=== PATIENT | female | born 1990 | race Caucasian/White ===

== ENCOUNTER 2016-09-10 18:38 | Emergency (ER) | payer MEDICAID ==
[~2016-09-10] VITALS: Ht 182.9 cm; Wt 113.6 kg
[~2016-09-10 18:38] MED LIST: BCP TD; BIRTH CONTROL PILL; LEXAPRO20 MG PO; MIRENA52 MG IY; MOTRIN 600600 MG/TAB PO; MOTRIN 800800 MG/TAB PO; PERCOCET 325 MG1 TA2 PO; PHENERGAN 25 TA25 MG PO; PRENATAL1 TA7 PO
[2016-09-10 18:47] VITALS: TEMP 97.7
[2016-09-10] MEDS ORDERED: LEXAPRO20 MG PO (18:51)
[2016-09-10 19:35] LABS: BASO % 0.4 % (0.0-2.0); EOS # 0.3 (0.0-0.7); EOS % 2.9 % (0-4.0); GRAN # 6.8 (1.4-6.5); HEMATOCRIT 37.5 % (37.0-47.0); HEMOGLOBIN 13.1 g/dl (12.5-16.0); LYMPH # 2.8 (1.2-3.4); LYMPH % 26.9 % (20.0-51.0); MEAN CELL VOLUME 85 fl (80.0-100.0); MEAN CORPUSCULAR HEMOGLOBIN 30 pg (27.0-31.0); MEAN CORPUSCULAR HGB CONC 35 g/dl (33.0-37.0); MEAN PLATELET VOLUME 10.1 fl (7.4-10.4); MONO # 0.5 (0.1-0.6); MONO % 4.6 % (1.7-9.3); PLATELET COUNT 269 K/mm3 (130-400); REDCELL DISTRIBUTION WIDTH-CV 13.8 % (11.5-14.5); WHITE BLOOD COUNT 10.5 K/mm3 (4.8-10.8)
[2016-09-10 19:49] LABS: ADJUSTED CALCIUM 9.6 mg/dL (8.4-10.2); ALBUMIN 4.2 gm/dL (3.5-5.0); BILIRUBIN,TOTAL 0.6 mg/dL (0.0-1.0); C-REACTIVE PROTEIN 2.3 mg/dL (0.0-0.9); CALCIUM 9.8 mg/dL (8.4-10.2); CREATININE, serum 0.79 mg/dL (0.52-1.25); POTASSIUM 3.8 mmol/L (3.4-5.0); TOTAL PROTEIN 7.3 gm/dL (6.4-8.2)
[2016-09-10 21:17] LABS: PH 5 (5-8); URINE APPEARANCE Turbid; URINE BACTERIA None Seen /hpf; URINE BILIRUBIN Negative (NEGATIVE); URINE BLOOD Negative (NEGATIVE); URINE COLOR Amber; URINE GLUCOSE Negative (NEGATIVE); URINE KETONE Trace (NEGATIVE); URINE RBC 0-2 /hpf
[2016-09-10] MEDS ORDERED: FLAGYL500 MG PO (22:10)
[2016-09-10] MEDS ORDERED: CIPRO 500MG TA500 MG PO (22:10)
[2016-09-10] MEDS ORDERED: ZOFRAN 4MG T4 MG/TAB PO (22:10)
[2016-09-10] MEDS ORDERED: NORCO 325 MG-51 TAB PO (22:10)
[2016-09-10 22:31] VITALS: BP 132/84; PULSE 74
== END 2016-09-10 22:32 | disposition home or self-care (01) ==
LOC: COL.ER 18:38
PROVIDERS: Emergency Medicine
DX: K52.9 Noninfective gastroenteritis and colitis, unspecified (principal)
CPT/HCPCS: J1170; J1885; J2550; J7030; Q9967

== ENCOUNTER 2017-04-12 10:09 | Emergency (ER) | payer BC ==
[~2017-04-12] VITALS: Ht 182.9 cm; Wt 131.8 kg
[~2017-04-12 10:09] MED LIST changes: +CIPRO 500MG TA500 MG PO; +FLAGYL500 MG PO; +NORCO 325 MG-51 TAB PO; +ZOFRAN 4MG T4 MG/TAB PO
[2017-04-12 10:13] VITALS: TEMP 98.4
[2017-04-12] MEDS ORDERED: ZOLOFT 100MG100 MG PO (10:41)
[2017-04-12] MEDS ORDERED: ATARAX 10MG10 MG/TAB PO (10:41)
[2017-04-12 10:49] LABS: BASO # 0.1 (0.0-0.2); BASO % 0.7 % (0.0-2.0); EOS # 0.2 (0.0-0.7); EOS % 2.8 % (0-4.0); GRAN # 5.9 (1.4-6.5); GRAN % 69.3 % (42.2-75.2); HEMATOCRIT 38.2 % (37.0-47.0); HEMOGLOBIN 13.7 g/dl (12.5-16.0); LYMPH # 1.9 (1.2-3.4); MEAN CELL VOLUME 86 fl (80.0-100.0); MEAN CORPUSCULAR HEMOGLOBIN 31 pg (27.0-31.0); MEAN CORPUSCULAR HGB CONC 36 g/dl (33.0-37.0); MEAN PLATELET VOLUME 9.7 fl (7.4-10.4); MONO # 0.4 (0.1-0.6); MONO % 4.8 % (1.7-9.3); PLATELET COUNT 272 K/mm3 (130-400); RED BLOOD COUNT 4.45 M/mm3 (4.10-5.30); REDCELL DISTRIBUTION WIDTH-CV 12.7 % (11.5-14.5); WHITE BLOOD COUNT 8.6 K/mm3 (4.8-10.8)
[2017-04-12 11:01] LABS: ADJUSTED CALCIUM 9.3 mg/dL (8.4-10.2); ALBUMIN 4.3 gm/dL (3.5-5.0); BILIRUBIN,TOTAL 0.5 mg/dL (0.0-1.0); CALCIUM 9.5 mg/dL (8.4-10.2); CREATININE, serum 0.63 mg/dL (0.52-1.25); TOTAL PROTEIN 7.2 gm/dL (6.4-8.2)
[2017-04-12 11:03] LABS: PH 7 (5-8); URINE APPEARANCE Hazy; URINE BACTERIA Rare /hpf; URINE BILIRUBIN Negative (NEGATIVE); URINE BLOOD Negative (NEGATIVE); URINE COLOR Straw; URINE GLUCOSE Negative (NEGATIVE); URINE KETONE Negative (NEGATIVE); URINE RBC 0-2 /hpf; URINE UROBILINOGEN Negative (NEGATIVE); URINE WBC 0-2 /hpf
[2017-04-12] MEDS ORDERED: NORCO 325 MG-51 TAB PO (12:00)
[2017-04-12 12:06] VITALS: BP 136/88; PULSE 92
== END 2017-04-12 12:08 | disposition home or self-care (01) ==
LOC: COL.ER 10:09
PROVIDERS: Family Medicine
DX: R10.11 Right upper quadrant pain (principal); F17.210 Nicotine dependence, cigarettes, uncomplicated
CPT/HCPCS: J1170; J2405; J7030

== ENCOUNTER → 2017-04-13 | Outpatient (CLI) | payer BC ==
[~2017-04-13] MED LIST changes: +ADVIL200 MG PO; +ATARAX 10MG10 MG/TAB PO; +LEVSIN0.125 M1 PO; +NUVARING VAG RING VG; +PRILOSEC 20MG20 MG PO; +TYLENOL 325MG325 MG PO; +ZOLOFT 100MG100 MG PO
== END ==
LOC: COL.RAD 14:17
DX: R10.11 Right upper quadrant pain (principal); R10.2 Pelvic and perineal pain
CPT/HCPCS: Q9967

== ENCOUNTER → 2017-04-19 | Outpatient (CLI) | payer BC | LOC: COL.RAD 11:58 | DX: R10.11 Right upper quadrant pain (principal) | CPT/HCPCS: A9537; J2270 ==

== ENCOUNTER 2017-05-11 11:55 | Day surgery (SDC) | payer BC ==
[~2017-05-11] VITALS: Ht 182.9 cm; Wt 135.1 kg
[~2017-05-11 11:55] MED LIST changes: -ADVIL200 MG PO; -LEVSIN0.125 M1 PO; -NUVARING VAG RING VG; -PRILOSEC 20MG20 MG PO; -TYLENOL 325MG325 MG PO
[2017-05-11] MEDS ORDERED: TYLENOL 325MG325 MG PO (12:21)
[2017-05-11] MEDS ORDERED: NUVARING VAG RING VG (12:21)
[2017-05-11] MEDS ORDERED: ADVIL200 MG PO (12:22)
[2017-05-11 12:46] VITALS: BP 131/82; PULSE 93; TEMP 97.2
[2017-05-11 14:40] VITALS: BP 118/78; PULSE 67; TEMP 97.7
--- NOTE | 2017-05-11 14:40 | NUR ---
Pt. returned to [facility] via cart accompanied by martinez RN. Pt. ambulated with assist to chair, gait steady. Boyfriend is in room. VS stable. Pt. reports pain level of 9/10 but states this is tolerable. Pt. states pain is normally a 7/10, and she feels slightly more discomfort after procedure. States she does not need a warm compress or pain medication at this time. Pt. is talking without difficulty, smiling, and tolerating PO fluids and muffins without difficulty. Pt. is alert/oriented/answering questions appropriately. Call arguelles within reach.
[2017-05-11 14:45] VITALS: BP 105/65; PULSE 84
--- NOTE | 2017-05-11 14:45 | NUR ---
Pt. continues to sit up in chair with boyfriend in room. Tolerating PO intake well. Denies nausea/needs, states abdominal pain is tolerable. Call arguelles within reach.
[2017-05-11 15:00] VITALS: BP 120/74; PULSE 74
--- NOTE | 2017-05-11 15:00 | NUR ---
Pt. continues to sit up in bed with boyfriend in room. Denies needs. Dr. Martinez in to see patient and discuss procedure. Call arguelles within reach.
[2017-05-11 15:15] VITALS: BP 133/72; PULSE 62
--- NOTE | 2017-05-11 15:15 | NUR ---
Pt. continues to tolerate PO intake well. IV discontinued at this time with tip intact. Dressing applied, pt. tolerated procedure well. Pt. dressed and ambulated to restroom at this time independently and without difficulty. Call arguelles within reach.
[2017-05-11] MEDS ORDERED: PRILOSEC 20MG20 MG PO (15:31)
[2017-05-11] MEDS ORDERED: LEVSIN0.125 M1 PO (15:32)
--- NOTE | 2017-05-11 15:40 | NUR ---
Pt. states she is ready to go home. Discharge instructions provided at this time, pt. and boyfriend voice understanding. Pt. discharged via wheelchair, accompanied by this RN. Pt. assisted into private vehicle, driven home by boyfriend.
[2017-07-11] MEDS ORDERED: BACTRIM DS 8001 TAB PO (00:11)
[2018-07-12] MEDS ORDERED: OMNICEF 300MG300 MG PO (10:59)
[2018-12-20] MEDS ORDERED: PROAIR HFA0.09 MG/AC IH (03:23)
[2018-12-20] MEDS ORDERED: ZITHROMAX 250M250 MG PO (03:23)
== END 2017-05-11 15:45 | disposition home or self-care (01) ==
LOC: SDCO 11:55
DX: K29.30 Chronic superficial gastritis without bleeding (principal); K64.0 First degree hemorrhoids; F17.210 Nicotine dependence, cigarettes, uncomplicated; F41.9 Anxiety disorder, unspecified; Z80.51 Family history of malignant neoplasm of kidney; Z80.1 Family history of malignant neoplasm of trachea, bronchus and lung; Z80.0 Family history of malignant neoplasm of digestive organs
CPT/HCPCS: OP; J2250; J2405; J3010; J7030

== ENCOUNTER 2017-05-17 01:31 | Emergency (ER) | payer BC ==
[~2017-05-17] VITALS: Wt 131.8 kg
[~2017-05-17 01:31] MED LIST changes: +ADVIL200 MG PO; +LEVSIN0.125 M1 PO; +NUVARING VAG RING VG; +PRILOSEC 20MG20 MG PO; +TYLENOL 325MG325 MG PO
[2017-05-17 01:35] VITALS: BP 163/83; PULSE 89; TEMP 97
[2017-05-17] MEDS ORDERED: NORCO 325 MG-51 TAB PO (02:22)
== END 2017-05-17 02:21 | disposition home or self-care (01) ==
LOC: COL.ER 01:31
DX: R07.0 Pain in throat (principal); R07.1 Chest pain on breathing; Z98.890 Other specified postprocedural states; F99 Mental disorder, not otherwise specified

== ENCOUNTER 2018-01-17 12:24 | Emergency (ER) | payer BC ==
[~2018-01-17] VITALS: Ht 182.9 cm; Wt 144.6 kg
[~2018-01-17 12:24] MED LIST changes: +BACTRIM DS 8001 TAB PO
[2018-01-17 12:27] VITALS: BP 139/94; TEMP 97.3
[2018-01-17 12:59] LABS: COLLECTION METHOD CLEAN CATCH
[2018-01-17 13:09] LABS: BASO # 0.1 (0.0-0.2); BASO % 0.5 % (0.0-2.0); EOS # 0.2 (0.0-0.7); EOS % 2.4 % (0-4.0); GRAN # 6.8 (1.4-6.5); GRAN % 67.5 % (42.2-75.2); HEMATOCRIT 37.9 % (37.0-47.0); HEMOGLOBIN 13.2 g/dl (12.5-16.0); LYMPH # 2.5 (1.2-3.4); LYMPH % 24.7 % (20.0-51.0); MEAN CELL VOLUME 85 fl (80.0-100.0); MEAN CORPUSCULAR HEMOGLOBIN 30 pg (27.0-31.0); MEAN CORPUSCULAR HGB CONC 35 g/dl (33.0-37.0); MEAN PLATELET VOLUME 9.5 fl (7.4-10.4); MONO # 0.5 (0.1-0.6); MONO % 4.6 % (1.7-9.3); PLATELET COUNT 310 K/mm3 (130-400); RED BLOOD COUNT 4.47 M/mm3 (4.10-5.30); REDCELL DISTRIBUTION WIDTH-CV 14.2 % (11.5-14.5)
[2018-01-17 13:12] LABS: MUCOUS Present /lpf; PH 5 (5-8); URINE APPEARANCE Cloudy; URINE BACTERIA Rare /hpf; URINE BILIRUBIN Negative (NEGATIVE); URINE BLOOD 1+ (NEGATIVE); URINE COLOR Yellow; URINE GLUCOSE Negative (NEGATIVE); URINE KETONE Negative (NEGATIVE); URINE LEUKOCYTE ESTERASE 2+ (NEGATIVE); URINE NITRATE Negative (NEGATIVE); URINE PROTEIN(semi-quant) 1+ (NEGATIVE); URINE RBC 0-2 /hpf
[2018-01-17 13:24] LABS: ALBUMIN 3.7 gm/dL (3.5-5.0); BILIRUBIN,TOTAL 0.2 mg/dL (0.0-1.0); C-REACTIVE PROTEIN 2.4 mg/dL (0.0-0.9); CALCIUM 9.3 mg/dL (8.4-10.2); CREATININE, serum 0.63 mg/dL (0.52-1.25); POTASSIUM 4.2 mmol/L (3.4-5.0); TOTAL PROTEIN 6.9 gm/dL (6.4-8.2)
[2018-01-17] MEDS ORDERED: NORCO 325 MG-51 TAB PO (14:33)
[2018-01-17 14:39] VITALS: PULSE 77
== END 2018-01-17 14:40 | disposition home or self-care (01) ==
LOC: COL.ER 12:24
PROVIDERS: Nurse Practitioner
DX: G89.29 Other chronic pain (principal); R10.11 Right upper quadrant pain; Z98.890 Other specified postprocedural states

== ENCOUNTER 2018-07-10 20:04 | Emergency (ER) | payer BC ==
[~2018-07-10] VITALS: Ht 182.9 cm; Wt 124.1 kg
[2018-07-10 20:12] VITALS: TEMP 97.3
[2018-07-10 20:25] LABS: COLLECTION METHOD CLEAN CATCH
[2018-07-10 20:36] LABS: BUDDING YEAST Present /hpf; MUCOUS Present /lpf; PH 6 (5-8); SQUAMOUS EPITHELIAL 0-2 /hpf; URINE APPEARANCE Hazy; URINE BACTERIA Rare /hpf; URINE BILIRUBIN Negative (NEGATIVE); URINE BLOOD 2+ (NEGATIVE); URINE COLOR Yellow; URINE GLUCOSE Negative (NEGATIVE); URINE KETONE Negative (NEGATIVE); URINE LEUKOCYTE ESTERASE 3+ (NEGATIVE); URINE NITRATE Negative (NEGATIVE); URINE PROTEIN(semi-quant) Negative (NEGATIVE); URINE RBC >50 /hpf; URINE UROBILINOGEN Negative (NEGATIVE)
[2018-07-10 20:46] LABS: BASO % 0.4 % (0.0-2.0); EOS # 0.2 (0.0-0.7); EOS % 1.5 % (0-4.0); GRAN # 7.9 (1.4-6.5); GRAN % 70.9 % (42.2-75.2); HEMOGLOBIN 13.4 g/dl (12.5-16.0); LYMPH # 2.6 (1.2-3.4); LYMPH % 23.1 % (20.0-51.0); MEAN CELL VOLUME 87 fl (80.0-100.0); MEAN CORPUSCULAR HEMOGLOBIN 30 pg (27.0-31.0); MEAN CORPUSCULAR HGB CONC 34 g/dl (33.0-37.0); MEAN PLATELET VOLUME 9.7 fl (7.4-10.4); MONO # 0.4 (0.1-0.6); MONO % 3.8 % (1.7-9.3); PLATELET COUNT 278 K/mm3 (130-400); REDCELL DISTRIBUTION WIDTH-CV 14.7 % (11.5-14.5)
[2018-07-10] MEDS ORDERED: BACTRIM DS 8001 TAB PO (20:56)
[2018-07-10 21:33] VITALS: BP 120/76; PULSE 75
[2018-07-12] MEDS ORDERED: OMNICEF 300MG300 MG PO (10:59)
== END 2018-07-10 21:35 | disposition home or self-care (01) ==
LOC: COL.ER 20:04
PROVIDERS: Emergency Medicine; Family Medicine
DX: N30.00 Acute cystitis without hematuria (principal)
CPT/HCPCS: A4216; J0696; J2405; J7030

== ENCOUNTER 2019-01-23 19:59 | Emergency (ER) | payer BC ==
[~2019-01-23] VITALS: Ht 182.9 cm; Wt 118.2 kg
[~2019-01-23 19:59] MED LIST changes: +OMNICEF 300MG300 MG PO; +PROAIR HFA0.09 MG/AC IH; +ZITHROMAX 250M250 MG PO
[2019-01-23 20:02] VITALS: BP 121/68; TEMP 99.2
[2019-01-23 20:21] LABS: COLLECTION METHOD CLEAN CATCH
[2019-01-23 20:35] LABS: MUCOUS Present /lpf; PH 6 (5-8); SQUAMOUS EPITHELIAL None Seen /hpf; URINE APPEARANCE Cloudy; URINE BACTERIA None Seen /hpf; URINE BILIRUBIN Negative (NEGATIVE); URINE BLOOD 3+ (NEGATIVE); URINE COLOR Amber; URINE GLUCOSE Negative (NEGATIVE); URINE KETONE Negative (NEGATIVE); URINE LEUKOCYTE ESTERASE 2+ (NEGATIVE); URINE NITRATE Negative (NEGATIVE); URINE PROTEIN(semi-quant) 2+ (NEGATIVE); URINE RBC >50 /hpf; URINE UROBILINOGEN Negative (NEGATIVE)
[2019-01-23] MEDS ORDERED: MACROBID 1100 MG/CAP PO (21:05)
[2019-01-23 21:31] VITALS: PULSE 81
== END 2019-01-23 21:31 | disposition home or self-care (01) ==
LOC: COL.ER 19:59
PROVIDERS: Nurse Practitioner
DX: N39.0 Urinary tract infection, site not specified (principal); F17.210 Nicotine dependence, cigarettes, uncomplicated; Z98.890 Other specified postprocedural states
CPT/HCPCS: J1885

== ENCOUNTER 2019-02-04 08:06 | Emergency (ER) | payer BC ==
[~2019-02-04] VITALS: Ht 180.3 cm; Wt 124.0 kg
[~2019-02-04 08:06] MED LIST changes: +MACROBID 1100 MG/CAP PO
[2019-02-04 08:10] VITALS: BP 127/71; TEMP 97.6
[2019-02-04 08:26] LABS: COLLECTION METHOD CLEAN CATCH
[2019-02-04 08:37] LABS: BUDDING YEAST Present /hpf; PH 6 (5-8); SQUAMOUS EPITHELIAL 0-2 /hpf; URINE APPEARANCE Cloudy; URINE BACTERIA Occasional /hpf; URINE BILIRUBIN Negative (NEGATIVE); URINE BLOOD 3+ (NEGATIVE); URINE COLOR Yellow; URINE GLUCOSE Negative (NEGATIVE); URINE KETONE Negative (NEGATIVE); URINE LEUKOCYTE ESTERASE 3+ (NEGATIVE); URINE NITRATE Negative (NEGATIVE); URINE PROTEIN(semi-quant) Negative (NEGATIVE); URINE RBC >50 /hpf; URINE UROBILINOGEN Negative (NEGATIVE)
[2019-02-04] MEDS ORDERED: CIPRO 500MG TA500 MG PO (08:56)
[2019-02-04] MEDS ORDERED: DIFLUCAN150 MG PO (08:58)
[2019-02-04 09:08] VITALS: PULSE 73
== END 2019-02-04 09:09 | disposition home or self-care (01) ==
LOC: COL.ER 08:06
PROVIDERS: Physician Assistant
DX: N76.0 Acute vaginitis (principal); N39.0 Urinary tract infection, site not specified; F17.210 Nicotine dependence, cigarettes, uncomplicated; B96.89 Other specified bacterial agents as the cause of diseases classified elsewhere; B37.9 Candidiasis, unspecified

== ENCOUNTER 2019-05-04 17:21 | Emergency (ER) | payer BC ==
[~2019-05-04] VITALS: Ht 180.3 cm; Wt 127.3 kg
[~2019-05-04 17:21] MED LIST changes: +DIFLUCAN150 MG PO
[2019-05-04 17:29] VITALS: TEMP 98.5
[2019-05-04 17:54] LABS: COLLECTION METHOD CLEAN CATCH
[2019-05-04 18:17] LABS: PH 6 (5-8); SQUAMOUS EPITHELIAL 0-2 /hpf; URINE APPEARANCE Hazy; URINE BACTERIA None Seen /hpf; URINE BILIRUBIN Negative (NEGATIVE); URINE BLOOD 3+ (NEGATIVE); URINE COLOR Amber; URINE GLUCOSE Negative (NEGATIVE); URINE KETONE Negative (NEGATIVE); URINE LEUKOCYTE ESTERASE 3+ (NEGATIVE); URINE NITRATE Positive (NEGATIVE); URINE PROTEIN(semi-quant) 2+ (NEGATIVE); URINE RBC >50 /hpf; URINE UROBILINOGEN Negative (NEGATIVE)
[2019-05-04 18:51] LABS: BASO # 0.1 (0.0-0.2); BASO % 0.4 % (0.0-2.0); EOS # 0.2 (0.0-0.7); EOS % 1.3 % (0-4.0); GRAN # 8.3 (1.4-6.5); GRAN % 68.4 % (42.2-75.2); HEMATOCRIT 38.4 % (37.0-47.0); LYMPH % 24.8 % (20.0-51.0); MEAN CELL VOLUME 92 fl (80.0-100.0); MEAN CORPUSCULAR HEMOGLOBIN 31 pg (27.0-31.0); MEAN CORPUSCULAR HGB CONC 34 g/dl (33.0-37.0); MEAN PLATELET VOLUME 9.4 fl (7.4-10.4); MONO # 0.6 (0.1-0.6); MONO % 4.8 % (1.7-9.3); PLATELET COUNT 241 K/mm3 (130-400); RED BLOOD COUNT 4.18 M/mm3 (4.10-5.30); REDCELL DISTRIBUTION WIDTH-CV 13.5 % (11.5-14.5)
[2019-05-04 19:07] LABS: ALBUMIN 3.9 gm/dL (3.5-5.0); BILIRUBIN,TOTAL 0.3 mg/dL (0.0-1.0); C-REACTIVE PROTEIN 3.2 mg/dL (0.0-0.9); CALCIUM 9.1 mg/dL (8.4-10.2); CREATININE, serum 0.74 (0.52-1.25); POTASSIUM 3.6 mmol/L (3.4-5.0); TOTAL PROTEIN 6.5 gm/dL (6.4-8.2)
[2019-05-04] MEDS ORDERED: OMNICEF 300MG300 MG PO (21:09)
[2019-05-04 21:46] VITALS: BP 136/75; PULSE 68
== END 2019-05-04 21:20 | disposition home or self-care (01) ==
LOC: COL.ER 17:21
PROVIDERS: Emergency Medicine; Physician Assistant
DX: N39.0 Urinary tract infection, site not specified (principal)
CPT/HCPCS: A4216; J0696; J1885; J2405; J7030; Q9967

== ENCOUNTER 2021-12-02 07:56 | Inpatient (IN) | payer MEDICAID ==
[~2021-12-02] VITALS: Ht 180.3 cm; Wt 152.3 kg
[2021-12-03] VITALS (52 sets, daily range): BP systolic 98–162; BP diastolic 51–100; PULSE 56–89; TEMP 97.7
[2021-12-03] MEDS ORDERED: EFFEXOR-XR150 MG PO (06:32)
[2021-12-03] MEDS ORDERED: PRENATAL TABLET PO (06:32)
--- NOTE | 2021-12-03 07:00 | NUR ---
0615 Pt ambulatory onto unit. FHR monitor/TOCO applied. Vital signs WNL. Pt denies any vaginal bleeding, regular contractions, decreased movement, or leaking of fluid. Assessments done. Consents signed. Oriented to room. Plan of care discussed. Call light within reach. Pt verbalizes understanding. 0645 IV started in right hand. Flushes easily. No redness/drainage/edema at site. 0700 LR and pitocin started per protocol.
[2021-12-03 07:18] LABS: BASO % 0.4 % (0.0-2.0); EOS # 0.2 K/mm3 (0.0-0.7); GRAN % 70.7 % (42.2-75.2); LYMPH # 1.9 K/mm3 (1.2-3.4); LYMPH % 22.8 % (20.0-51.0); MEAN CELL VOLUME 85 fl (80.0-100.0); MEAN CORPUSCULAR HEMOGLOBIN 30 pg (27-31); MEAN CORPUSCULAR HGB CONC 35 g/dl (33.0-37.0); MEAN PLATELET VOLUME 10.9 fl (7.4-10.4); MONO # 0.3 K/mm3 (0.1-0.6); MONO % 3.6 % (1.7-9.3); PLATELET COUNT 209 K/mm3 (130-400); RED BLOOD COUNT 4.05 M/mm3 (4.10-5.30); REDCELL DISTRIBUTION WIDTH-CV 15.9 % (11.5-14.5)
[2021-12-03 07:19] LABS: HEMATOCRIT 34.6 % (37.0-47.0)
--- NOTE | 2021-12-03 13:30 | NUR ---
[id number] This RN at bedside. FHR intermittently audible. [address] to [address] FSE 1315 A MARINA RN attempting to place FSE 1330 Dr. Hobbs in patient room. SVE /2. FSE PLACED.
--- NOTE | 2021-12-03 16:00 | NUR ---
[id number] this rn at bedside repositionning patient, increasing LR, pitocin shut off. Dr Hobbs notified about FHR.
[2021-12-04 01:15] VITALS: BP 130/69; PULSE 55; TEMP 98.7
[2021-12-04 04:30] VITALS: BP 126/67; PULSE 58; TEMP 98
[2021-12-04 07:00] VITALS: BP 111/61; PULSE 60; TEMP 97.9
[2021-12-04] MEDS ORDERED: ROXICODONE 55 MG/TAB PO (09:41)
[2021-12-04] MEDS ORDERED: IBU600 MG PO (09:41)
[2021-12-04 12:10] VITALS: BP 125/66; PULSE 71; TEMP 97.7
--- NOTE | 2021-12-04 12:33 | NUR ---
Initial visit; Parents thanked [employer] Professor for offering congratulations and God's blessings for the of their son. [employer] Professor thanked family for choosing [facility].
[2021-12-04 16:38] VITALS: BP 118/55; PULSE 70; TEMP 97.5
--- NOTE | 2021-12-04 18:30 | NUR ---
Report recieved. Resting in bed and eating at this time. POC reviewed and whiteboard updatd. Questions invited and denied by pt.
[2021-12-04 19:10] VITALS: BP 126/67; PULSE 69; TEMP 97.7
[2021-12-05 07:32] VITALS: BP 122/57; PULSE 73; TEMP 97.8
== END 2021-12-05 11:40 | disposition home or self-care (01) | DRG 788 ==
LOC: OB 12-03 06:07 → LDR 12-03 06:07 → OB 12-03 18:00
PROVIDERS: ADMIT Obstetrics & Gynecology
PROC: 10D00Z1 Extraction of Products of Conception, Low, Open Approach (ICD-10-PCS; principal; 2021-12-03)
PROC: 3E033VJ Introduction of Other Hormone into Peripheral Vein, Percutaneous Approach (ICD-10-PCS; 2021-12-03)
DX: O99.214 Obesity complicating childbirth (principal); O99.344 Other mental disorders complicating childbirth; F32.A Depression, unspecified; O99.72 Diseases of the skin and subcutaneous tissue complicating childbirth; L30.9 Dermatitis, unspecified; Z37.0 Single live birth; O76 Abnormality in fetal heart rate and rhythm complicating labor and delivery; O69.81X0 Labor and delivery complicated by cord around neck, without compression, not applicable or unspecified; Z3A.39 39 weeks gestation of pregnancy
CPT/HCPCS: J0690; J1100; J1885; J2405; J2540; J2590; J2791; J7120